=== PATIENT | male | born 2000 | race Caucasian/White ===

== ENCOUNTER 2020-04-29 09:58 | Emergency (ER) | payer OTHER ==
[~2020-04-29] VITALS: Ht 180.3 cm; Wt 62.6 kg
[2020-04-29 10:46] VITALS: BP 126/67
== END 2020-04-29 10:47 | disposition home or self-care (01) ==
LOC: M.ERS 09:58
DX: R06.02 Shortness of breath (principal); Z20.828 Contact with and (suspected) exposure to other viral communicable diseases